=== PATIENT | male | born 1950 | race Caucasian/White ===

== ENCOUNTER → 2021-07-22 | Day surgery (SDC) | payer MEDICARE ==
[~2021-07-22] VITALS: Ht 172.7 cm; Wt 93.0 kg
[~2021-07-22] MED LIST: DAILY VALUE1 EACH PO; ECOTRIN81 MG PO; LIPITOR20 MG PO; PRINIVIL20 MG PO; TENORMIN50 MG PO
== END | disposition home or self-care (01) ==
LOC: FAS 07-01 09:00
DX: D12.5 Benign neoplasm of sigmoid colon (principal); K62.1 Rectal polyp; I10 Essential (primary) hypertension; F17.200 Nicotine dependence, unspecified, uncomplicated; G47.30 Sleep apnea, unspecified; Z79.82 Long term (current) use of aspirin; Z79.899 Other long term (current) drug therapy
CPT/HCPCS: 93005; J2250; J2704; J7120